=== PATIENT | male | born 1970 | race Caucasian/White ===

== ENCOUNTER 2018-11-08 07:50 | Day surgery (SDC) | payer OTHER ==
[2018-11-06 17:44] VITALS: BMI 23.8
[~2018-11-08] VITALS: Ht 165.1 cm; Wt 63.4 kg
[2018-11-08] VITALS (16 sets, daily range): BP systolic 118–146; BP diastolic 72–89; PULSE 66–99; RESP 15–28; Ht 165.1 cm; Wt 63.4 kg
[~2018-11-08 07:50] MED LIST: ADV10050 INHALATION; ALBU18HF INHALATION; DESFLURANE 15 MIN ONE
[2018-11-08] MEDS ORDERED: CEFAZOLIN 2 GM/50 ML (PMX) 50 ML IVPB ONE (09:41)
--- NOTE | 2018-11-08 09:56 | HPN ---
Date/Time of Note Date/Time of Note DATE: 11/08/18 TIME: 09:56 Interval H&P Admission Note Pt. seen H&P reviewed: No system changes KALANI NELSON MD Nov 08, 2018 09:56
--- NOTE | 2018-11-08 10:09 | PREAC ---
Date/Time of Note Date/Time of Note DATE: 11/08/18 TIME: 10:08 Anesthesia Eval and Record Evaluation Time Pre-Procedure Interview DATE: 11/08/18 TIME: 10:08 Age 48 Sex male NPO: 8 hrs Preoperative diagnosis Lumbar DDD Planned procedure Laminectomy Past Medical History Past Medical History: Includes Pulm: Asthma Surgery & Anesthesia Issues No known issue Meds Anticoagulation: No Beta Bonita within 24 hr: No Reason Beta Bonita not given: Pt. not on B-Bonita Reported Medications Albuterol Sulfate* (Ventolin HFA*) 18 Gm Hfa.aer.ad, 2 PUFF INHALATION Q6H PRN for WHEEZING AND SOB, #1 INHALER 11/07/18 Salmeterol Xinaf-Fluticasone* (Advair*) 100/50 Diskus Inhaler, 1 INH INHALATION BID, #1 INHALER 11/07/18 Meds reviewed: Yes Allergies Coded Allergies: No Known Allergy (Unverified , 11/08/18) Allergies Reviewed: Yes Labs/Studies Labs Reviewed: Reviewed by anesthesiologist Blood Bank Test 11/07/18 12:38 Antibody Screen NEGATIVE Blood Product Summary Counts Blood Type O POSITIVE test: Negative Studies: ECG Pre-procedure Exam Last vitals Vital Signs Date Temp Pulse Resp B/P (MAP) Pulse Ox O2 O2 Flow FiO2 Time Delivery Rate 11/08/18 98.0 80 16 146/89 100 Room Air 08:51 (108) Airway: Adequate mouth opening, Adequate thyromental dist Mallampati: Mallampati II Teeth: Normal Lung: Normal Heart: Normal ASA Physical Status ASA physical status: 2 Emergency: None Planned Anesthetic General/MAC: ETT Pre-operative Attestations Prior to commencing anesthesia and surgery, the patient was re-evaluated, there was verification of: *The patient's identity *The results of appropriate recent lab work and preoperative vital signs *The above evaluation not changing prior to induction *Anesthetic plan, risk benefits, alternative and complications discussed with patient/family; questions answered; patient/family understands, accepts and wishes to proceed. GIBSON MIRAMONTES Nov 08, 2018 10:09
[2018-11-08] MEDS ORDERED: BUPIVACAINE 0.25% (MPF) 30 ML INJ ONE (10:14)
[2018-11-08] MEDS ORDERED: POLYMYXIN/BACITRACIN 1L IRRIG ONE (10:14)
[2018-11-08] MEDS ORDERED: OXYCODONE/ACETAMINOPHEN (5/325) TAB PO PRN ×3 (10:30→12:00)
[2018-11-08] MEDS ORDERED: LEVALBUTEROL (NEB) 0.63 MG/3 ML AMP HHN PRN (10:30)
[2018-11-08] MEDS ORDERED: MEPERIDINE 25 MG INJ IV PRN (10:30)
[2018-11-08] MEDS ORDERED: HYDROmorphONE 1 MG/5 ML IV SYRINGE IV PRN ×2 (10:30)
[2018-11-08] MEDS ORDERED: ONDANSETRON 4 MG INJ IV PRN ×2 (10:30→12:00)
[2018-11-08] MEDS ORDERED: ALBUTEROL 0.083% (NEB) 2.5 MG/3 ML AMP HHN PRN (10:30)
[2018-11-08] MEDS ORDERED: DIPHENHYDRAMINE 50 MG INJ IV PRN (10:30)
[2018-11-08] MEDS ORDERED: METOCLOPRAMIDE 10 MG INJ IV PRN (10:30)
[2018-11-08] MEDS ORDERED: FENTAnyl 50 MCG/ML VIAL ONE (10:30)
[2018-11-08] MEDS ORDERED: FENTAnyl 50 MCG/ML VIAL IV PRN ×3 (10:30)
[2018-11-08] MEDS ORDERED: SUGAMMADEX SODIUM 200 MG/2 ML VIAL IV ONE (11:29)
[2018-11-08] MEDS ORDERED: LIDOCAINE 100 MG SYRINGE ONE (11:29)
[2018-11-08] MEDS ORDERED: ROCURONIUM 50 MG INJ ONE (11:29)
[2018-11-08] MEDS ORDERED: PROPOFOL 20 ML ONE (11:29)
[2018-11-08] MEDS ORDERED: SUCCINYLCHOLINE CHLORIDE 100 MG/5 ML SYG IV ONE (11:29)
[2018-11-08] MEDS ORDERED: LACTATED RINGER'S 1,000 ML IV SCH (11:56)
[2018-11-08] MEDS ORDERED: TRIMETHOBENZAMIDE 300 MG CAP PO PRN (12:00)
[2018-11-08] MEDS: HYDROmorphONE 1 MG/5 ML IV SYRINGE IV PRN ×2 (12:00→12:13)
--- NOTE | 2018-11-08 12:05 | SIPON ---
Date/Time of Note Date/Time of Note DATE: 11/08/18 TIME: 12:03 Operative Report Preoperative Diagnosis Herniated disc L4-5 on the right Postoperative Diagnosis Same Operation/Procedure Performed Right hemilaminotomy L4 Microdiscectomy L4-5 on the right Medial facetectomy and foraminotomy L4-5 on the right Cosmetic wound closure (2.6 cm) Lateral localizing lumbar radiographs (2) Intraoperative nerve monitoring (2 hours) Surgeon see signature line registrar assistant Leah PALENCIAA Anesthesia: general Estimated blood loss: 10 - 50 ml's Transfusion Required none Specimen Disc material L4-5 Grafts/Implants none Complications none KALANI NELSON MD Nov 08, 2018 12:05
--- NOTE | 2018-11-08 13:16 | OPR ---
DATE OF OPERATION: 11/08/2018 PREOPERATIVE DIAGNOSIS: Herniated disk, L4 to L5 on the right. POSTOPERATIVE DIAGNOSIS: Herniated disk, L4 to L5 on the right. OPERATIONS PERFORMED: 1. Right hemilaminotomy, L4. 2. Microdiskectomy, L4 to L5 on the right. 3. Medial facetectomy and foraminotomy, L4 to L5 on the right. 4. Cosmetic wound closure (2.6 cm). 5. Lateral localized lumbar radiographs (2). 6. Intraoperative nerve monitoring (2 hours). SURGEON: Wolf Lowe MD COLLAR POINTER: WADE Stephens ANESTHESIA: Endotracheal. ANESTHESIOLOGIST: Bryan Hurst MD ESTIMATED BLOOD LOSS: 10 mL - none replaced. DRAINS: No drains employed. COMPLICATIONS: None. PERTINENT HISTORY AND PHYSICAL: This is a 48-year-old male who sustained injury in his back in cours e of employment on 05/03/2017. He has had extensive care since that time. He has remained symptomat ic with back and right leg pain which has been unrelieved by conservative management. He has undergo ne a number of diagnostic studies including an MRI of the lumbar spine which demonstrated central her niation of the L4 to L5 disk and electrodiagnostic evaluation which revealed an active L5 radiculopat hy on the right. Treatment options were discussed with the patient, who elected to proceed with surg [place]. OPERATIVE FINDINGS AT SURGERY: A small central herniation of the L4 to L5 disk was confirmed. The b aseline intraoperative nerve monitoring revealed a decrease in the L5 potential on the right of 40%. This returned to normal at the completion of the surgery. OPERATIVE PROCEDURE IN DETAILS: With the patient in supine position after satisfactory induction of general endotracheal anesthesia by Dr. Hurst, the patient was turned to the prone kneeling positi on over the [place] frame. All pressure points were carefully padded. The back was prepped and betty ped in usual sterile fashion. Athrombic pumps were applied to the legs below the knees to prevent ve nous stasis during and after procedure. Two spinal needles were placed next to what was felt to be t he L4 and L5 spinous processes. Lateral roentgenograms were taken which confirmed anatomic localizat ion. A 2.6 cm incision was then carried out midline over the spinous process of L4 through skin and subcutaneous tissue to deep fascia after skin was infiltrated with 0.25% Marcaine without epinephrine for postoperative analgesia. Superficial retractors were placed and hemostasis was secured with mario ctrocautery. Incision was made over the fascia with a hot knife and a bilateral subperiosteal dissec tion was carried out at L4 on the right. A deep retractor was placed and deep hemostasis was secured with electrocautery. A second intraoperative radiograph was taken with deep retractor at what was f elt to be the L4 to L5 interspace and this was confirmed with second x-ray. A right hemilaminotomy L 4 was then carried out using [place] rongeur, Kerrison punches and curettes. Ligamentum flavum was i ncised with sharp dissection. The operating microscope was then moved into place. The medial facete ctomy and foraminotomy was accomplished using small hand osteotome, mallet, Kerrison punches and cure ttes. The L5 root was then mobilized medially and protected with Onesimo nerve retractor using micr odissection technique. This revealed a small central herniation of the L4 to L5 disk. A 15-blade kn diane was used to cut a rectangular window in the annulus and posterior longitudinal ligament and multi ple degenerative disk fragments were harvested with pituitary rongeurs and sent to laboratory for pat hologic study. Additional fragments were harvested using Dionicio curettes. A thorough search of the floor and canal was made with an arthroscopic probe. No additional fragments were encountered. The epidural hemostasis was secured with bipolar electrocautery on a low setting. Anesthesiologist aske d to perform a Valsalva maneuver at 40 mmHg and no spinal leak was noted. The wound was then closed in layers using #1 Vicryl sutures on the deep paralumbar musculature and deep fascia of back, 2-0 Thom ryl sutures in subcutaneous tissue and a 4-0 Vicryl subcuticular cosmetic closing suture on the skin. Dermabond and sterile compressive dressings were applied. The patient having tolerated procedure w ell, was then turned to the supine position onto his bed and extubated by Dr. Hurst. He was diaz sported to the recovery room in satisfactory condition. At the conclusion of the procedure, sponge, instrument and needle counts were all correct. NEED FOR RETOUCHER PHOTOENGRAVING: During this spinal surgical procedure, my executive chef assistant was used to retract and protect the spinal nerves and dural sac. My executive chef assistant also employed the suction catheters to aleksandra azalea blood from the surgical field to improve visualization of the neural structures. The executive chef assistant was medically necessary to facilitate the completion of the surgery in a safe and expeditious manner. State of [place] regulations, as well as hospital bylaws, preclude the use of non-licensed health care personnel such as operating room technicians, to perform these functions. Throughout the procedure, neural monitoring was carried out by [employer] including EMG, SSEP a nd MEP monitoring of the L3, L4, L5 and S1 nerve roots bilaterally along with spinal cord potentials. These were interpreted in real time by Dr. Du Horn. Dictated By: WOLF LOWE MD TM/NTS Conf#: [id number] DID#: [id number] CC: GERARD WATLON MD;*[facility]*
--- NOTE | 2018-11-08 14:10 | NUR ---
PT [facility] Patient: Noe Rhodes : 1970 Age/Sex: 48/M Unit#: [id number] Room/Bed: 170/D User: Jasiel Hernandez PT Date: 11/08/18 13:15 Type: PT Technical Record Therapy day number 1 Evaluation Start Time 13:15 Evaluation Total Time 0 min Subjective Current complaint of pain Pain Scale NUMERIC Pain Intensity 5 (0-10) Patient Stated Goal for Pain Relief 0 (0-10) Pain Level Comment surgical site pain, R buttock pain Pre Treatment Vital Signs Stable Yes Exercise Assessment Label Bilat Lower Extremity Exercise Type Active ROM Additional Exercise Comments semi-supine APs Supine to Sit Stand by Assist Transfer Sit to Stand Ability Stand by Assist Bed Mobility Sit to Supine Stand by Assist Bed Transfer Ability Stand by Assist Chair Transfer Ability Stand by Assist Sitting Tolerance 12 min Additional Mobility Comments log-roll in and out of bed Patient uses wheelchair Not Applicable Gait Assist Levels Stand by Assist Assistive Devices Front Wheel Walker Ambulation Distance 150 feet Additional Gait Comments increased UE support, slow gela, steady, stable, reciprocal Stair Climbing Ability Stand by Assist Number of Stairs 14 Stairs Additional Stairs Assist Comments step-to gait pattern with use of unilateral rail, no LOB, VC for sequencing Static Sitting Balance Good Dynamic Sitting Balance Good Standing Static Balance Good Dynamic Standing Balance Fair plus Additional Balance Assessments Comments FWW Safety Judgement Good Activity Tolerance Good Additional Equipment Present LS corset Post Treatment Pain Intensity 5 0-10 Variance Documentation SEE PT EVAL PT Technical Record Comment Pt is a 48 yo M with PMH of back injury at employment on 05/03/27 with back and R leg pain who is now S/P R hemilaminotomy L4, microdiscectomy L4-L5 on R, medial facetectomy and foraminotomy L4-L5 on R. Pt received in same day surgery. Precautions: spinal precautions PLOF: Pt lives with in 2nd floor apartment with no elevator access. Ambulatory without assistance and without AD. Pt does own a FWW however. available to assist pt for next few days. CLOF: RN cleared pt for PT evaluation. Pt received supine in bed, agreeable to PT evaluation. Pt educated in spinal precautions. ROM assessment WFL, pt reported diminished sensation on R LE. Pt donned LS corset for comfort for all OOB activities. Bed mobility, transfer, gait and stair assessment as described above, pt able to amb 150' with FWW and ascend and descend 1 flight of stairs safely. Pt returned to bed, all needs in reach, no signs of distress. RN notified of pt's status Recommendation: Pt demonstrates safety with ambulation of 150' with FWW and negotiate of 14 steps using unilateral rail. Able to maintain spinal precautions with all mobility tasks. Anticipating home discharge with family assistance as needed once cleared by . Pt has a FWW, educated in its use to reduce R LE pain with amb. P: Continue c PT POC
--- NOTE | 2018-11-08 14:47 | NUR ---
PT TRANSFER FROM PACU AT 1300. AT BEDSIDE. D/C TEACHING DONE AND INSTRUCTIONS GIVEN. PERCOCET 2 TABS GIVEN FOR BACK INC PAIN. PT IS BEING D/C'D HOME NOW. DENIES NAUSEA.
--- NOTE | 2018-11-09 09:31 | PAC ---
Date/Time of Note Date/Time of Note DATE: 11/09/18 TIME: 09:30 Post-Anesthesia Notes Post-Anesthesia Note Last documented vital signs Vital Signs Date Temp Pulse Resp B/P (MAP) Pulse Ox O2 O2 Flow FiO2 Time Delivery Rate 11/08/18 97.8 67 18 135/82 99 13:00 (99) 11/08/18 Room Air 12:53 Activity: WNL Respiratory function: WNL Cardiovascular function: WNL Mental status: Baseline Pain reasonably controlled: Yes Hydration appropriate: Yes Nausea/Vomiting absent: Yes GIBSON MIRAMONTES Nov 09, 2018 09:31
== END 2018-11-08 14:54 | disposition home or self-care (01) ==
LOC: REC 07:50 → SDS 07:50 → UNDOADMIN 07:50 → SDS 14:54 → UNDODISIN 14:54 → EDSTATUS 17:14
PROVIDERS: ATTEND Orthopaedic Surgery
DX: M51.16 Intervertebral disc disorders with radiculopathy, lumbar region (principal)
CPT/HCPCS: 63030; 72020; 86850; 86900; 86901; 86920; 88304; 97161; J0690; J1170; J2001; J3010